=== PATIENT | female | born 1940 | race Caucasian/White ===

== ENCOUNTER → 2022-03-07 | Outpatient (RCR) | payer MEDICARE, OTHER | LOC: PT 02-25 13:17 | PROVIDERS: ATTEND Specialist | DX: S46.001A Unspecified injury of muscle(s) and tendon(s) of the rotator cuff of right shoulder, initial encounter (principal) ==

== ENCOUNTER 2022-04-05 08:59 | Outpatient (RCR) | payer MEDICARE, OTHER | END 2022-04-06 | LOC: PT 08:59 | PROVIDERS: ATTEND Specialist | DX: M75.101 Unspecified rotator cuff tear or rupture of right shoulder, not specified as traumatic (principal) ==

== ENCOUNTER 2022-06-03 10:00 | Outpatient (RCR) | payer MEDICARE, OTHER | END 2022-06-07 | LOC: PT 10:00 | PROVIDERS: ATTEND Specialist | DX: M75.101 Unspecified rotator cuff tear or rupture of right shoulder, not specified as traumatic (principal) ==

== ENCOUNTER 2022-06-24 09:00 | Outpatient (RCR) | payer MEDICARE, OTHER | END 2022-07-05 | LOC: PT 09:00 | PROVIDERS: ATTEND Specialist | DX: M75.101 Unspecified rotator cuff tear or rupture of right shoulder, not specified as traumatic (principal) ==